=== PATIENT | female | born 1975 | race Caucasian/White ===

== ENCOUNTER 2017-02-06 10:49 | Outpatient (CLI) | payer BC ==
--- NOTE | 2017-02-06 12:14 | RAD ---
THREE VIEWS FIFTH DIGIT RIGHT HAND: History: 41-year-old female with pain. FINDINGS: AP, lateral, and oblique views obtained. No evidence of fractures, subluxations, or bony lesions seen. IMPRESSION: Normal three views fifth digit right hand. POS: C
== END 2017-02-06 10:50 | disposition home or self-care (01) ==
LOC: RAD 10:49
PROVIDERS: ATTEND Family Medicine
DX: S69.91XA Unspecified injury of right wrist, hand and finger(s), initial encounter (principal)

== ENCOUNTER 2019-08-22 14:36 | Emergency (ER) | payer BC, OTHER ==
[~2019-08-22 14:36] MED LIST: Iopamidol-370 76% 500 ML 1 ML ONE
[2019-08-22] MEDS ORDERED: Morphine 4 MG/ML VIAL ONE (15:17)
[2019-08-22] MEDS ORDERED: Adacel (T-DAP) 0.5 ML SYRINGE ONE (15:17)
[2019-08-22] MEDS ORDERED: CEFAZOLIN 2 GM in Premix Bag 1 BAG IVPB SCH (15:45)
[2019-08-22] MEDS ORDERED: Ondansetron PF 4 MG/2 ML Vial ONE (16:01)
[2019-08-22 16:05] LABS: Mean Corpuscular HGB CONC 31.4 g/dL (32.0-36.0); Mean Corpuscular Hemoglobin 24.9 pg (27.0-31.0); Mean Corpuscular Volume 79.3 fL (78.0-98.0); Mean Platelet Volume 8.1 fL (7.4-10.4); Platelet Count 326 thou/uL (130-400); RBC Distribution Width 13.2 % (11.5-14.5); Red Blood Cell (RBC) Count 4.42 mill/uL (4.20-5.40); White Blood Cell (WBC) Count 21.3 thou/uL (4.8-10.8)
[2019-08-22 16:25] LABS: ALT (SGPT) 14 U/L (8-55); AST (SGOT) 19 U/L (5-34); Albumin 4.2 g/dL (3.5-5.0); Alkaline Phosphatase 50 U/L (40-110); Anion Gap 13 mmol/L (10-20); BUN (Urea Nitrogen) 13 mg/dL (7.0-18.7); Bilirubin, Total 0.3 mg/dL (0.2-1.2); Calc. Creatinine Clearance 0 mL/min (70-130); Calcium 8.7 mg/dL (7.8-10.44); Carbon Dioxide 19 mmol/L (22-29); Chloride 110 mmol/L (98-107); Estimated GFR-MDRD 70; Globulin 3.2 g/dL (2.4-3.5); Glucose 197 mg/dL (70-105); Potassium 3.8 mmol/L (3.5-5.1); Protein, Total 7.4 g/dL (6.0-8.3); Sodium 138 mmol/L (136-145)
--- NOTE | 2019-08-22 16:28 | CT ---
CT BRAIN 08/22/19 PROVIDED CLINICAL HISTORY: Injury. FINDINGS: The ventricular system appears normal in size and morphology. There is no evidence for intracranial h emorrhage or mass effect. The extracranial soft tissues and osseous structures demonstrate an unremar kable CT appearance. IMPRESSION: No evidence for intracranial hemorrhage or mass effect. POS: [facility]
[2019-08-22 16:29] LABS: Band 25 % (5-11); Hypochromia SLIGHT = 6-15 cells (100X) (0-5/hpf); Lymphocytes 2 % (21-51); MDiff Complete? YES; Monocytes 4 % (0-10); Neutrophil 68 % (42-75); Ovalocytes SLIGHT = 2-5 cells (100X) (0-1/hpf); Platelet Morphology Comment Appears Adequate; Polychromasia SLIGHT = 2-3 cells (100X) (0-2/hpf); Reactive Lymphocytes 1 % (0-10); Schistocytes SLIGHT = 2-5 cells (100X) (0-1/hpf); Tear Drops SLIGHT = 2-5 cells (100X) (0-1/hpf)
--- NOTE | 2019-08-22 16:31 | CT ---
CT CERVICAL SPINE 08/22/19 PROVIDED CLINICAL HISTORY: Injury. FINDINGS: No evidence for fracture or traumatic subluxation. No prevertebral soft tissue swelling apparent. The visualized lung apices appear clear. IMPRESSION: No evidence for fracture or traumatic subluxation. POS: [facility]
[2019-08-22 16:40] LABS: BHCG - Serum Negative (NEGATIVE); Pregs Control Background? CLEAR/WHITE (CLR/WHITE); Pregs Control Bar Appear? YES (CONTROL BAR)
--- NOTE | 2019-08-22 16:41 | CT ---
CT CHEST, ABDOMEN AND PELVIS WITH IV CONTRAST 08/22/19 PROVIDED CLINICAL HISTORY: Pain status post injury. FINDINGS: The heart, pericardium, and great vessels demonstrate no evidence for traumatic abnormality. The lung s are free of significant opacity. There is no pleural fluid or pneumothorax apparent. The solid abdominal organs are suboptimally evaluated due to patient respiratory motion but demonstra te no definite evidence for traumatic abnormality. There is no bowel dilatation, intraperitoneal fat stranding, free intraperitoneal fluid or free intraperitoneal air. The uterus is enlarged and heterog eneous compatible with fibroid disease. There is anterior and inferior location of the right humerus with respect to the glenoid. There is co mminuted displaced fracture involving the region of the greater tuberosity. Vacuum joint phenomenon v ersus intra-articular fat density. The thoracic and lumbar spine demonstrate normal alignment and maintenance of vertebral body heights. No additional fracture is evident. IMPRESSION: 1. Anterior glenohumeral fracture dislocation. 2. No additional evidence for traumatic abnormality involving chest, abdomen and pelvis. POS: [facility]
--- NOTE | 2019-08-22 17:06 | RAD ---
FRONTAL VIEW RIGHT SHOULDER: 08/22/19 PROVIDED CLINICAL HISTORY: Pain status post injury. FINDINGS: Anterior dislocation of the right glenohumeral joint is demonstrated. Fracture fragments overlie the lateral aspect of the proximal humerus and inferior aspects of the bony glenoid. Fracture morphology is better visualized on CT chest, abdomen and pelvis. IMPRESSION: Anterior glenohumeral fracture dislocation. POS: [facility]
[2019-08-22] MEDS ORDERED: Lidocaine 1% PF 5 ML VIAL ONE (17:47)
[2019-08-22] MEDS ORDERED: Ketamine 50 MG/ML (10ML VIAL) ONE (17:47)
--- NOTE | 2019-08-22 17:47 | RAD ---
LEFT FOREARM RADIOGRAPHS TWO VIEWS: 08/22/19 PROVIDED CLINICAL HISTORY: Injury. FINDINGS: Not significantly displaced radial styloid fracture. No additional fracture is evident. IMPRESSION: As above. POS: [facility]
--- NOTE | 2019-08-22 19:33 | RAD ---
TWO VIEWS RIGHT SHOULDER: 08/22/19 PROVIDED CLINICAL HISTORY: Post reduction. FINDINGS: Comparison to examination earlier same date. The glenohumeral relationship appears normal. Fracture fragments adjacent to the humeral head are red emonstrated. IMPRESSION: Post reduction. POS: [facility]
--- NOTE | 2019-08-22 19:37 | RAD ---
RIGHT THUMB RADIOGRAPHS THREE VIEWS: 08/22/19 PROVIDED CLINICAL HISTORY: Pain. Status post injury. No evidence for fracture or other acute osseous abnormality. If there is persistent clinical concern, conservative management and follow-up imaging are advised. IMPRESSION: As above. POS: [facility]
== END 2019-08-22 21:20 | disposition home or self-care (01) ==
LOC: ERS 14:36
DX: S52.512A Displaced fracture of left radial styloid process, initial encounter for closed fracture (principal); S43.014A Anterior dislocation of right humerus, initial encounter; S42.141A Displaced fracture of glenoid cavity of scapula, right shoulder, initial encounter for closed fracture; S41.119A Laceration without foreign body of unspecified upper arm, initial encounter
CPT/HCPCS: 12002; 23650; 29125; 36415; 70450; 71260; 72125; 74177; 80053; 84703; 85025; 90471; 90715; 96365; 96375; 99152; J0690; J2001; J2270; J2405; Q9967

== ENCOUNTER 2019-09-03 09:44 | Outpatient (CLI) | payer OTHER ==
[2019-09-04 16:05] LABS: SARS-CoV-2 MS2 Positive; SARS-CoV-2 N Gene Negative; SARS-CoV-2 S Gene Negative; SARS-CoV-2 orf1ab Negative
== END 2019-09-03 09:45 | disposition home or self-care (01) ==
LOC: LABBT 09:44
PROVIDERS: ATTEND Orthopaedic Surgery Hand Surgery
DX: Z01.812 Encounter for preprocedural laboratory examination (principal); Z11.59 Encounter for screening for other viral diseases; S52.512A Displaced fracture of left radial styloid process, initial encounter for closed fracture; S62.012A Displaced fracture of distal pole of navicular [scaphoid] bone of left wrist, initial encounter for closed fracture
CPT/HCPCS: 87635; U0003

== ENCOUNTER 2019-09-07 12:42 | Day surgery (SDC) | payer OTHER ==
[2019-09-03 09:44] VITALS: BMI 34.7
[~2019-09-07 12:42] MED LIST changes: +Dexamethasone 20 MG/5 ML VIAL ONE; -Iopamidol-370 76% 500 ML 1 ML ONE; +Ketorolac Tromethamine 30 MG/ML VIAL ONE; +Ondansetron PF 4 MG/2 ML Vial ONE; +PROPOFOL 200 MG/20 ML VIAL ONE; +diphenhydrAMINE 50 MG/ML VIAL ONE
[2019-09-07] MEDS ORDERED: Betamet Acet/Betamet Na Ph 30 MG/5 ML VIAL ONE (13:11)
[2019-09-07] MEDS ORDERED: Bacitracin Zinc Ointment 30 gm TUBE ONE (13:11)
[2019-09-07] MEDS ORDERED: Bupivacaine PF 0.5% 30 ML VIAL ONE (13:12)
[2019-09-07] MEDS ORDERED: Fentanyl 250 MCG/5 ML VIAL ONE (13:15)
[2019-09-07] MEDS ORDERED: Midazolam HCl 2 mg/2 ml Vial ONE (13:15)
[2019-09-07] MEDS ORDERED: Morphine Sulfate 2 MG/ML SYRINGE SLOW IVP PRN (16:58)
[2019-09-07] MEDS ORDERED: Ondansetron HCl/PF 4 MG/2 ML Vial IVP PRN (16:58)
[2019-09-07] MEDS ORDERED: HYDROmorphone 2 MG/ML VIAL SLOW IVP PRN (16:58)
[2019-09-07] MEDS ORDERED: Meperidine HCl/PF 25 MG/ML VIAL SLOW IVP PRN (16:58)
[2019-09-07] MEDS ORDERED: PACU-Morphine 4MG/ML VIAL SLOW IVP PRN (16:58)
[2019-09-07] MEDS ORDERED: Fentanyl 100 MCG/2 ML VIAL ONE ×3 (16:58→17:49)
[2019-09-07] MEDS ORDERED: Promethazine HCl 25 MG/ML VIAL IM PRN (16:58)
[2019-09-07] MEDS ORDERED: Ketorolac Tromethamine 30 MG/ML VIAL ONE (17:08)
[2019-09-07] MEDS ORDERED: HYDROcodone/Acetaminophen 5/325 mg Tablet ONE (18:20)
--- NOTE | 2019-09-07 18:25 | RAD ---
9 fluoroscopic spot images of the left wrist: 09/07/2019 12:00 AM CLINICAL INDICATION: Operative repair of left wrist fractures COMPARISON: Left wrist radiograph dated September 01, 2019. FINDINGS: Bones: Since the comparison examination there is been interval reduction and operative fixation of t he distal scaphoid and radial styloid process fractures. Fracture alignment is near anatomic. Instrumentation projects in the expected position. Carpal alignment appears within normal limits. Joints: Joints space is preserved.. Soft Tissue: Normal.. Total fluoroscopic time was 1 minute and 30 seconds. IMPRESSION: Interval ORIF of left scaphoid and radial styloid process fractures.
--- NOTE | 2019-09-08 12:49 | OP ---
DATE OF PROCEDURE: 09/07/2019 PREOPERATIVE DIAGNOSES: 1. Left waist scaphoid angulated and displaceable fracture. 2. Left radial styloid fracture, displaced. POSTOPERATIVE DIAGNOSES: 1. Left waist scaphoid angulated and displaceable fracture. 2. Left radial styloid fracture, displaced. PROCEDURES PERFORMED: 1. Left scaphoid fracture open reduction and internal fixation via different approach from. 2. Left radial styloid fracture open reduction and internal fixation. 3. C-arm supervision. TOURNIQUET TIME: 81 minutes. ESTIMATED BLOOD LOSS: Less than or equal to 10 mL. INDICATION: The patient with fall, had obvious radial styloid fracture that was unstable and had a scaphoid fracture that was displaceable based on range of motion making a displaced fracture distal pole waist junction. DESCRIPTION OF PROCEDURE: After successful general endotracheal anesthesia, the limb was prepped and draped. Time-out was done appropriately. Anesthesia with general LMA technique performed by [facility]. We then outlined the incision zigzag exposing the first dorsal compartment and the dorsal radial part of the wrist to visualize the fracture. We then carried to the skin and subcutaneous tissue after exsanguinating the limb and inflated the tourniquet to 250 mmHg pressure. We saw the branches of the superficial radial nerve and protected them with dorsal and palmar force retraction. We then released subperiosteally the first dorsal compartment so it could be repaired later. We visualized the radial edge of the fracture, irrigated and debrided it and then reduced it anatomically and radiographs confirmed this. We then placed two guidewires, each 4 mm apart and appropriately measured the distance. We drilled, measured and screwed with and without actual compression the 3-0 [employer] cannulated screw. Then, we closed the retinaculum for the first dorsal compartment, closed the fascia and we waited till the end of procedure to close the skin and dermal and epidermal contents. Via separate volar approach, centered on the FCR tendon and beginning just at the radiocarpal junction, made the incision, carried through skin and subcutaneous tissue, opened up to the proximal 1 cm of the thenar muscle to expose the entire trapezium. We then exposed the fracture, saw it was displaceable, but not displaced after reduction maneuvers. We then passed a guidewire into it to hold the fracture in place then the second guidewire that was slightly more dorsal than centered in the sagittal plane, but in the frontal plane in the center of the long axis. Over this, we then measured and we drilled with the final construct being approximately 3 mm short of the tip of the bone in the sagittal plane flush with the dorsal end of the bone and 2 to 3 mm short of the distal edge of the bone in the frontal plane. The fracture was not displaced. We then finished the screw placement, removed the wire, took final radiographs and then deflated the tourniquet. We obtained hemostasis, we then closed the joint capsule with a 0 Vicryl, the FCR fascia and the muscle with a 2-0 Vicryl undyed and the patient left the operating room with the dermis and epidermis closed with no evidence of anesthetic or operative complication and a thumb spica splint. Job ID: [id number]
== END 2019-09-07 19:10 | disposition home or self-care (01) ==
LOC: SDC 12:42
PROVIDERS: ATTEND Orthopaedic Surgery Hand Surgery
PROC: 0PSJ04Z Reposition Left Radius with Internal Fixation Device, Open Approach (ICD-10-PCS; principal; 2019-09-07)
PROC: 0PSN04Z Reposition Left Carpal with Internal Fixation Device, Open Approach (ICD-10-PCS; principal; 2019-09-07)
DX: S52.512A Displaced fracture of left radial styloid process, initial encounter for closed fracture (principal); S62.012A Displaced fracture of distal pole of navicular [scaphoid] bone of left wrist, initial encounter for closed fracture; Z79.899 Other long term (current) drug therapy; Z91.030 Bee allergy status; Z91.038 Other insect allergy status
CPT/HCPCS: 76000; C1713; J0690; J0702; J1100; J1200; J1885; J2250; J2405; J2704; J3010; J3490; S0020